=== PATIENT | male | born 1965 | race Caucasian/White ===

== ENCOUNTER → 2025-06-09 | Outpatient (CLI) | payer OTHER ==
[~2025-06-09] MED LIST: GABA300C PO; HYDR-4060 PO; LISI10TA24 PO; METF-526 PO; NAPR-1194 PO; ROSU40TA88 PO
--- NOTE | 2025-06-10 00:08 | HMCIMG ---
EXAM: MRI OF THE LEFT SHOULDER WITHOUT CONTRAST CLINICAL HISTORY: Other specified disorders of tendon, left shoulder. COMPARISON: No prior imaging available for comparison. TECHNIQUE: Multiplanar, multisequence MRI of the left shoulder was performed without intravenous contrast. FINDINGS: Rotator Cuff Tendons: Postsurgical changes are noted from prior rotator cuff tendon tear repair, with multiple surgical pins seen within the greater tuberosity of the humerus. The supraspinatus tendon demonstrates thickening and intrasubstance increased signal consistent with tendinosis, with a full-thickness tear involving the middle and anterior fibers. There is medial retraction of the torn supraspinatus tendon. The tear is measuring approximately 2.7 x 1.8 cm. The infraspinatus tendon shows tendinosis without evidence of tear. The subscapularis tendon demonstrates thickening with intrasubstance edema, consistent with tendinosis, without a discrete tear. The teres minor tendon is intact. Rotator Cuff Muscles: Atrophic changes are present within the supraspinatus muscle belly. Mild atrophy of the proximal fibers of the deltoid muscle is noted, predominantly involving the middle portion. The remaining rotator cuff muscles demonstrate preserved bulk without focal edema. Biceps Tendon and Bursa: The long head of the biceps tendon is located within the bicipital groove. Mild myxoid signal changes are present within the biceps tendon in the bicipital groove as well as the intra-articular horizontal segment, without evidence of tear. A moderate effusion is present within the biceps tendon sheath/bursa. Labrum: The glenoid labrum is intact. No SLAP tear is identified. Acromioclavicular Joint: Degenerative osteoarthritic changes are present, characterized by marginal osteophyte formation, synovial hypertrophy, capsular thickening, and joint effusion. These changes result in narrowing of the subacromial space with impingement upon the supraspinatus myotendinous junction. Glenohumeral Joint and Ligaments: The glenohumeral articular cartilage is preserved. There is slight superior subluxation of the humeral head relative to the glenoid. The coracohumeral, superior glenohumeral, and middle glenohumeral ligaments demonstrate mild thickening with mucoid degeneration, without evidence of tear. The rotator cuff interval is preserved. Bursae: A moderate subacromialsubdeltoid bursal effusion is present. Osseous Structures: No acute fracture or marrow-replacing lesion is identified. The acromion demonstrates a concave undersurface, consistent with a type II acromial morphology (Bigliani classification). Soft Tissues and Neurovascular Structures: Mild subcutaneous edema is present over the superior aspect of the shoulder. The visualized neurovascular structures are unremarkable. IMPRESSION: * Full-thickness supraspinatus tendon tear (Ellman grade III) involving the middle and anterior fibers, with medial retraction measuring approximately 2.7 cm (Patte stage II), on a background of supraspinatus tendinosis and prior rotator cuff repair. * Supraspinatus muscle atrophy (Goutallier grade IIIII) with mild superior migration of the humeral head (Hamada grade III), consistent with chronic rotator cuff dysfunction. * Subscapularis and infraspinatus tendinosis without tear (tendinopathy grade I). * Moderate subacromialsubdeltoid bursitis with associated biceps tendon sheath effusion and mild biceps tendinosis (grade I). 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 /[place]
== END | disposition home or self-care (01) ==
LOC: RAH 07:45
PROVIDERS: ATTEND Orthopaedic Surgery
DX: M75.122 Complete rotator cuff tear or rupture of left shoulder, not specified as traumatic (principal); M67.814 Other specified disorders of tendon, left shoulder; M25.812 Other specified joint disorders, left shoulder; M19.012 Primary osteoarthritis, left shoulder; M62.512 Muscle wasting and atrophy, not elsewhere classified, left shoulder; M25.412 Effusion, left shoulder; M75.52 Bursitis of left shoulder; R60.0 Localized edema; Z98.890 Other specified postprocedural states
CPT/HCPCS: 73221